=== PATIENT | female | born 1975 | race Two or more races ===

== ENCOUNTER → 2024-09-26 | Outpatient (CLI) | payer MEDICAID, SELFPAY ==
--- NOTE | 2024-09-26 | XR_ITS ---
Examination: PA lateral chest 2 views TECHNIQUE: Upright PA lateral chest 2 views Date and time: September 26, 2024 1150 hours INDICATIONS: Wheezing today. FINDINGS: Normal heart size. Lungs are clear No pneumonia or pulmonary edema IMPRESSION: No active disease
== END | disposition home or self-care (01) ==
LOC: CDIM 11:20
PROVIDERS: Referring Provider Nurse Practitioner; Visit Provider Nurse Practitioner
DX: M05.79 Rheumatoid arthritis with rheumatoid factor of multiple sites without organ or systems involvement (principal); R06.2 Wheezing
CPT/HCPCS: 71046